=== PATIENT | male | born 1955 | race Caucasian/White ===

== ENCOUNTER 2017-12-30 05:51 | Day surgery (SDC) | payer OTHER ==
[~2017-12-30] VITALS: Ht 160 cm; Wt 65.8 kg
[2017-12-30] MEDS ORDERED: KETOROLAC 30 MG/ML VIAL ONE (07:57)
[2017-12-30] MEDS ORDERED: LIDOCAINE 2% 100 MG/5 ML UJET TP ONE (07:57)
== END 2017-12-30 09:31 | disposition home or self-care (01) ==
LOC: MDS 05:51 → MMU 06:07 → MDS 09:31
PROVIDERS: ATTEND Internal Medicine Gastroenterology
DX: Z12.11 Encounter for screening for malignant neoplasm of colon (principal); E66.3 Overweight; Z68.25 Body mass index [BMI] 25.0-25.9, adult; Z98.890 Other specified postprocedural states; Z72.89 Other problems related to lifestyle
CPT/HCPCS: 45378; J1885